=== PATIENT | female | born 1965 | race Caucasian/White ===

== ENCOUNTER 2016-09-27 10:19 | Emergency (ER) | payer BC ==
--- NOTE | 2016-09-27 10:45 | Emergency Department Record ---
History of Present Illness - General Chief Complaint: Cough Stated Complaint: COUGH Time Seen by Provider: 09/27/16 10:42 Source: Patient Mode of Arrival: Ambulatory Limitations: No limitations - History of Present Illness Initial Comments: 51 yo female presents to ED with a CC of cough and wheezing for the past 3 days. Patient also reports pressure/pain over the forehead, denies health problems at her baseline. Patient does report several ill contacts at her work. MD Complaint: Cough Onset/Timin -: Days(s) Severity: Mild Severity scale (1-10): 6 Consistency: Constant Improves With: Nothing Worsens With: Nothing Context: Sick contacts Associated Symptoms: Headache - Related Data Previous Rx's Medication Instructions Recorded Albuterol Sulfate [Proair Hfa] 1 - 2 puff IH .EVERY 4-6 HOURS PRN 09/27/16 #1 inhaler Azithromycin [Zithromax] 250 mg PO DAILY #6 tab 09/27/16 Prednisone [Prednisone 20Mg] 20 mg PO TID #15 tab 09/27/16 Allergies Allergy/AdvReac Type Severity Reaction Status Date / Time Sulfa (Sulfonamide Allergy Unknown Unverified 09/25/16 07:24 Antibiotics) [SULFA (SULFONAMIDE ANTIBIOTICS)] Travel Screening - Travel/Exposure Within Last 30 Days Have you traveled within the last 30 days?: No - Travel/Exposure Within Last Year Have you traveled outside the [place] in the last year?: No - Additonal Travel Details Have you been exposed to anyone with a communicable illness?: No - Travel Symptoms Symptom Screening: None Review of Systems Constitutional: Denies: Chills, Fever, Malaise, Night sweats Eyes: Denies: Eye discharge, Eye pain ENT: Reports: Congestion. Denies: Ear pain Respiratory: Reports: Cough, Dyspnea, Wheezes Cardiovascular: Denies: Chest pain, Dyspnea on exertion Endocrine: Denies: Fatigue, Heat or cold intolerance Gastrointestinal: Denies: Abdominal pain, Nausea, Vomiting Genitourinary: Denies: Dysuria, Frequency Musculoskeletal: Denies: Arthralgia, Back pain, Gout, Joint swelling Skin: Denies: Bruising, Change in color Neurological: Reports: Headache. Denies: Abnormal gait, Confusion, Seizure Psychiatric: Denies: Anxiety Hematological/Lymphatic: Denies: Anemia, Blood Clots Past Medical History - SOCIAL HISTORY Smoking Status: Never smoker - RESPIRATORY Hx Respiratory Disorders: No - CARDIOVASCULAR Hx Cardio Disorders: No - NEURO Hx Neuro Disorders: No - GI Hx GI Disorders: No - Hx Genitourinary Disorders: No - ENDOCRINE Hx Endocrine Disorders: No Hx Diabetes: No Hx Thyroid Disease: No - MUSCULOSKELETAL Hx Musculoskeletal Disorders: No - PSYCH Hx Psych Problems: No - HEMATOLOGY/ONCOLOGY Hx Hematology/Oncology Disorders: No Family Medical History Any Significant Family History?: Yes Hx Dementia: Mother Physical Exam - General General Appearance: Alert, Oriented x3, Cooperative, Mild distress Limitations: No limitations - Head Head exam: Atraumatic, Normocephalic, Normal inspection Head exam detail: negative: Abrasion, Contusion, Cook's sign, General tenderness, Hematoma, Laceration - Eye Eye exam: Normal appearance. negative: Conjunctival injection, Periorbital swelling, Periorbital tenderness, Scleral icterus - ENT Ear exam: negative: Auricular hematoma, Auricular trauma Nasal Exam: negative: Active bleeding, Discharge, Dried blood, Foreign body Mouth exam: negative: Drooling, Laceration, Muffled voice, Tongue elevation - Neck Neck exam: Normal inspection. negative: Meningismus, Tenderness - Respiratory Respiratory exam: Wheezes. negative: Rhonchi, Stridor - Cardiovascular Cardiovascular Exam: Regular rate, Normal rhythm, Normal heart sounds - GI/Abdominal GI/Abdominal exam: Soft. negative: Rebound, Rigid, Tenderness - Rectal Rectal exam: Deferred - exam: Deferred - Extremities Extremities exam: Normal inspection. negative: Pedal edema, Tenderness - Back Back exam: Denies: CVA tenderness (R), CVA tenderness (L) - Neurological Neurological exam: Alert, Normal gait, Oriented X3 - Psychiatric Psychiatric exam: Normal affect, Normal mood - Skin Skin exam: Normal color. negative: Abrasion Type of lesion: negative: abrasion Course Vital Signs 09/27/16 10:27 Temperature 98.2 F Pulse Rate 87 Respiratory 12 Rate Blood Pressure 129/76 Pulse Ox 96 - Reevaluation(s) Reevaluation #1: 09/27/16 10:48 Patient's symptoms appears consistent with bronchitis, will treat with prednisone, zithromax, and albuterol for her symptoms. Patient appears stable for discharge at this time. Disposition Disposition: Discharge Clinical Impression: Bronchitis Disposition: Home, Self-Care Condition: (2) Stable Instructions: Acute Bronchitis (ED) Additional Instructions: Return to ED if your symptoms worsen or if you have any concerns. Zithromax, Prednisone, and albuterol as directed. Follow-up with your family doctor in 3-5 days as directed. Prescriptions: Prednisone [Prednisone 20Mg] 20 mg PO TID #15 tab Albuterol Sulfate [Proair Hfa] 1 - 2 puff IH .EVERY 4-6 HOURS PRN #1 inhaler PRN Reason: Difficulty In Breathing Azithromycin [Zithromax] 250 mg PO DAILY #6 tab Forms: Patient Portal Access Time of Disposition: 10:45
== END 2016-09-27 11:00 | disposition home or self-care (01) ==
LOC: ER 10:19
DX: J20.9 Acute bronchitis, unspecified (principal)
CPT/HCPCS: 99282

== ENCOUNTER 2016-12-28 06:32 | Day surgery (SDC) | payer BC ==
[2016-12-28] MEDS ORDERED: FAMOTIDINE 20MG TABLET PO ONE (14:34)
[2016-12-28] MEDS ORDERED: MECLIZINE 25 MG TABLET PO ONE (14:34)
[2016-12-28] MEDS ORDERED: METOCLOPRAMIDE 10 MG TABLET PO ONE (14:34)
[2016-12-28] MEDS ORDERED: ONDANSETRON HCL IV 4 MG/2 ML VIAL IVP ONE (16:07)
[2016-12-28] MEDS ORDERED: DEXAMETHASONE 4 MG/ML 1ML VIAL IVP ONE (16:07)
[2016-12-28] MEDS ORDERED: MIDAZOLAM HCL 2MG/2ML VIAL IV ONE (16:07)
[2016-12-28] MEDS ORDERED: PROPOFOL 10 MG/ML VIAL IV ONE (16:07)
[2016-12-28] MEDS ORDERED: SEVOFLURANE 250 ML INH ONE (16:07)
[2016-12-28] MEDS ORDERED: FENTANYL PF 100MCG/2ML VIAL IV ONE (16:07)
[2016-12-28] MEDS ORDERED: LIDOCAINE 2% MDV (20MG/ML) 20ML VIAL IV ONE (16:07)
[2016-12-28] MEDS ORDERED: KETOROLAC 30 MG/ML VIAL IVP ONE (16:07)
--- NOTE | 2017-01-01 13:00 | Operative Note ---
DATE OF SURGERY: 12/28/2016 PREOPERATIVE DIAGNOSIS: Menorrhagia. POSTOPERATIVE DIAGNOSIS: Menorrhagia. OPERATION: Diagnostic hysteroscopy D&C with NovaSure ablation. Surgeon: Venita Johnston DO Anesthesia: General. COMPLICATIONS: None. ESTIMATED BLOOD LOSS: Minimal. HISTORY: This is a 51-year-old white female who has very heavy menstrual bleeding. She has small to large clots. This started about five months ago. There was no known event. It occurs monthly and lasts about seven days. FINDINGS DURING PROCEDURE: Atrophic lining of the uterus. There was a little bit of purulent material noted. PROCEDURE: The patient is prepped for surgery and brought back to the operating suite. She was placed under general anesthesia. She was sterilely prepped and draped in the dorsal lithotomy position. A weighted speculum was placed in the vaginal vault. A single-tooth tenaculum was used to picker machine operator the anterior lip of the cervix. The cervix was serially dilated to 14 Sami. The hysteroscope was then placed. The above findings were noted. The hysteroscope was removed. Curettings were done. The uterus sounded to 8 cm. The NovaSure device was placed; at a length of 4 and a width of 3.2 it passed testing. It was activated at a power of 70. It ran for 83 seconds. The NovaSure device was removed. The tenaculum was removed. No bleeding was noted. The patient was then awakened from general anesthesia and brought back to the recovery room in satisfactory condition. Venita Johnston DO [facility]
== END 2016-12-28 08:50 | disposition home or self-care (01) ==
LOC: SUR 06:32
PROVIDERS: ATTEND Obstetrics & Gynecology
DX: N92.4 Excessive bleeding in the premenopausal period (principal); R68.89 Other general symptoms and signs
CPT/HCPCS: 58563; 00952; 81025; J1885; J2405; J3010

== ENCOUNTER 2017-08-14 19:12 | Emergency (ER) | payer BC ==
--- NOTE | 2017-08-14 19:46 | Emergency Department Record ---
History of Present Illness - General Chief complaint: Pain Stated complaint: LT FOOT & HEEL PAIN Time Seen by Provider: 08/14/17 19:32 Source: Patient Mode of Arrival: Ambulatory Limitations: No limitations - History of Present Illness Initial comments: The patient has had L foot pain for 2 weeks mainly by the heel on the sole of the foot. She denies any specific injury. Now the pain is gradually worsening. There has been no swelling or bruising. MD Complaint: Extremity pain Onset/Timin -: Week(s) Radiation: None Severity scale (1-10): 2 Consistency: Intermittent Worsens with: Walking, Weight bearing Associated Symptoms: Denies other symptoms - Related Data Previous Rx's Medication Instructions Recorded Naproxen [Naprosyn] 250 mg PO BID #14 tablet 08/14/17 Allergies Allergy/AdvReac Type Severity Reaction Status Date / Time Sulfa (Sulfonamide Allergy Unknown PT UNSURE Verified 08/14/17 19:31 Antibiotics) OF REACTION [SULFA (SULFONAMIDE ANTIBIOTICS)] Travel Screening - Travel/Exposure Within Last 30 Days Have you traveled within the last 30 days?: No - Travel/Exposure Within Last Year Have you traveled outside the [place] in the last year?: No - Additonal Travel Details Have you been exposed to anyone with a communicable illness?: No - Travel Symptoms Symptom Screening: None Past Medical History - SOCIAL HISTORY Smoking Status: Never smoker Alcohol Use: Occasional Drug Use: None - RESPIRATORY Hx Respiratory Disorders: Yes Hx Bronchitis: Yes - CARDIOVASCULAR Hx Cardio Disorders: Yes - NEURO Hx Neuro Disorders: Yes Hx of Migraines: Yes (once every 3 months) - GI Hx GI Disorders: Yes Hx Reflux: Yes (on meds) - Hx Genitourinary Disorders: No - ENDOCRINE Hx Endocrine Disorders: No Hx Diabetes: No Hx Thyroid Disease: No - MUSCULOSKELETAL Hx Musculoskeletal Disorders: No - PSYCH Hx Psych Problems: No - HEMATOLOGY/ONCOLOGY Hx Hematology/Oncology Disorders: No Family Medical History Any Significant Family History?: Yes Hx Dementia: Mother Physical Exam - General General Appearance: Alert, Cooperative, No acute distress - Head Head exam: Atraumatic, Normocephalic - Eye Eye exam: Normal appearance, PERRL - Extremities Extremities exam: Normal inspection (There is no swelling or bruising appreciated.), Full ROM, Tenderness (There is tenderness over the plantar surface near the calcaneus of the L foot. There is no swelling, bruising, or erythema.), Other (The L foot is NVI.) Course Vital Signs 08/14/17 19:29 Temperature 98.8 F Pulse Rate [ 76 Pulse Ox Probe] Respiratory 18 Rate Blood Pressure 122/72 [Left Arm] Pulse Ox 96 - Reevaluation(s) Reevaluation #1: I did discuss the plan with the patient. She is to wear the hard soled shoe for a week and use an NSAID for pain. She is to see Dr. Sandhu in the Specialty clinic in 1-2 weeks. 08/14/17 20:13 Medical Decision Making - Data Complexity MDM Data: X-Ray Ordered and/or Reviewed - Radiology Data Radiology results: Report reviewed (L foot: No acute changes. Plantar calcaneal spur.) Disposition Disposition: Discharge Clinical Impression: Bronchitis, Foot pain, left Disposition: Home, Self-Care Condition: (2) Stable Instructions: Arthralgia (ED) Additional Instructions: Please use the hard soled shoe for 1-2 weeks and use ice to the affected area when possible. Take the naprosyn as directed and see Dr. Sandhu in the Specialty clinic in 1-2 weeks. Prescriptions: Naproxen [Naprosyn] 250 mg PO BID #14 tablet Referrals: [facility] [Provider Group] Forms: Patient Portal Access Time of Disposition: 20:15 Quality - Quality Measures Quality Measures: N/A - Blood Pressure Screening View Details: Yes Does Patient Have Any of the Following: No Blood Pressure Classification: Normal BP Reading Systolic Measurement: 102 Diastolic Measurement: 66 Screening for High Blood Pressure: < Normal BP, F/U Not Required > [G8783]
[2017-08-14] MEDS ORDERED: NAPROXEN 250 MG TABLET PO ONE (20:15)
--- NOTE | 2017-08-15 23:26 | RADIOLOGY REPORT ---
EXAM: FOOT, LEFT 3 VIEWS HISTORY: PLANTAR HEEL PAIN. TECHNIQUE: Three views. COMPARISON: None FINDINGS: There is a moderate-sized plantar calcaneal spur. The bones and joints otherwise are unremarkable with no fracture identified. No destructive or erosive change seen. IMPRESSION: 1. THERE IS A PLANTAR CALCANEAL SPUR. 2. OTHERWISE UNREMARKABLE LEFT FOOT. JOB NUMBER: [id number] MTDD
== END 2017-08-14 20:34 | disposition home or self-care (01) ==
LOC: ER 19:12
DX: J20.9 Acute bronchitis, unspecified (principal); M79.672 Pain in left foot
CPT/HCPCS: 99283

== ENCOUNTER 2018-07-22 08:54 | Day surgery (SDC) | payer BC ==
[2018-07-22] MEDS ORDERED: LIDOCAINE 2% MDV (20MG/ML) 20ML VIAL IV ONE (08:55)
[2018-07-22] MEDS ORDERED: PROPOFOL 10 MG/ML VIAL IV ONE (08:55)
--- NOTE | 2018-07-27 08:50 | Operative Note ---
DATE OF SURGERY: 07/22/2018 SURGEON: Viktor Swan MD OPERATION: COLONOSCOPY. INDICATIONS: This is a 54-year-old female with average risk for colorectal cancer who presented for screening colonoscopy. POSTOPERATIVE DIAGNOSIS: Normal colon and terminal ileal mucosa. ANESTHESIA: Sedation is per Anesthesia. Pulse oximetry was monitored throughout the procedure to maintain O2 saturation of 90% or greater. Supplemental oxygen was administered via nasal cannula. Cardiac and vital signs were monitored throughout the duration of the procedure, and they were stable. The procedure of colonoscopy and risks and alternatives of the procedure, including the risk of bleeding and perforation, among others, were explained to the patient who voiced understanding and agreed to have the procedure done. Physical examination was performed, and the patient was found stable for sedation. PROCEDURE: The patient was placed in the left lateral position. Sedation was initiated. A digital rectal exam was performed and showed some mild external hemorrhoids with no palpable rectal masses. An Olympus PCF-180AL colonoscope was then inserted into the rectum under direct visualization. It was advanced to the cecum without difficulty. The ileocecal valve and appendiceal orifice were identified and photographed. The colonic mucosa was carefully examined upon introduction of the colonoscope. There were no lesions noted. The bowel preparation was good. The ileocecal valve was intubated and terminal ileal mucosa was inspected for about 10 cm and it appeared normal. The colonoscope was then withdrawn while carefully examining the colonic mucosal surfaces. No other lesions were noted. In the rectum, retroflexion was performed and grade 1 internal hemorrhoids were noted. The colonoscope was then withdrawn and the procedure was terminated. The patient tolerated the procedure well without any immediate complications. The patient remained with stable vital signs and was transferred to the recovery room. RECOMMENDATIONS: 1. The patient should be on a high-fiber diet. 2. The patient is to have a repeat colonoscopy for surveillance in 10 years. Thank you for allowing me to participate in the care of your patient. CC: WALLACE Deleon
== END 2018-07-22 10:39 | disposition home or self-care (01) ==
LOC: HOP 08:54
PROVIDERS: ATTEND Internal Medicine Gastroenterology
DX: Z12.11 Encounter for screening for malignant neoplasm of colon (principal); K21.9 Gastro-esophageal reflux disease without esophagitis
CPT/HCPCS: 00812; 81025; G0121